=== PATIENT | male | born 1965 | race Hispanic/Latino ===

== ENCOUNTER → 2017-03-12 | Outpatient (CLI) | payer OTHER ==
[~2017-03-12] MED LIST: CIPRO500 MG PO; DITROPAN XL5 MG PO; LEVAQUIN500 MG PO; NORCO 7.5-3251 EACH PO; TYLENOL WITH C1 EACH PO; ZOFRAN ODT4 MG SL
--- NOTE | 2017-03-12 09:08 | Diagnostic Imaging Report ---
PROCEDURE:US LIVER COMPARISON:CT abdomen and pelvis 11/14/2015. INDICATIONS:Elevated LFTs TECHNIQUE: Núñez-scale and color doppler transverse and longitudinal images of the right upper quadrant of the abdomen were obtained. FINDINGS: Liver: 16.9 cm in right mid-clavicular line. Diffusely increased parenchymal echogenicity. No masses. Main portal vein: 0.9 cm in caliber. Hepatopedal flow. Gallbladder: Surgically removed. Common Bile Duct: 0.3 cm Right kidney: 11.2 cm. Normal renal cortical echogenicity. No solid masses or hydronephrosis. Pancreas: The visualized portions are unremarkable. Inferior vena cava: Patent Aorta: Non-aneurysmal Ascites: None in the right upper quadrant of the abdomen. CONCLUSION: Hepatomegaly with hepatic steatosis. Dictated by: Tony Boss M.D. on 03/12/2017 at 9:17 Electronically approved by: Tony Boss M.D. on 03/12/2017 at 9:17
== END ==
LOC: US 06:51
PROVIDERS: ATTEND Internal Medicine Gastroenterology
DX: R74.8 Abnormal levels of other serum enzymes (principal)
CPT/HCPCS: 76705

== ENCOUNTER → 2018-01-14 | Outpatient (CLI) | payer OTHER ==
--- NOTE | 2018-01-16 10:41 | Diagnostic Imaging Report ---
PROCEDURE:X-RAY ABDOMEN - KUB COMPARISON:02/09/2017 INDICATIONS:CALCULUS OF KIDNEY FINDINGS: The bowel gas pattern shows no dilated, air-filled loops of bowel. Gas and fecal material are noted throughout the large bowel and rectum. No calcifications project over the renal shadows or expected ureteral courses. Surgical clips are noted in the right upper quadrant the abdomen likely related to prior cholecystectomy. Regional skeletal structures are intact with mild multilevel degenerative disc changes of the thoracolumbar spine. No acute osseous abnormality. CONCLUSION: No plain film evidence of urolithiasis. Dictated by: Tony Boss M.D. on 01/16/2018 at 10:51 Electronically approved by: Tony Boss M.D. on 01/16/2018 at 10:51
== END ==
LOC: RAD 10:42
PROVIDERS: ATTEND Urology
DX: N20.0 Calculus of kidney (principal)
CPT/HCPCS: 74018